=== PATIENT | female | born 1980 | race Asian ===

== ENCOUNTER 2020-08-04 14:28 | Day surgery (SDC) | payer BC ==
[~2020-08-04] VITALS: Ht 160 cm; Wt 61.0 kg
[2020-08-04] MEDS ORDERED: CHLORHEXIDINE 15 ML UDC ONE (14:53)
[2020-08-04] MEDS ORDERED: ACETAMINOPHEN 500 MG TABLET ONE (14:53)
[2020-08-04] MEDS ORDERED: LACTATED RINGERS 1,000 ML IV SCH (15:00)
[2020-08-04] MEDS ORDERED: CHLORHEXIDINE 15 ML UDC PO ONE (15:00)
[2020-08-04] MEDS ORDERED: ACETAMINOPHEN 500 MG TABLET PO ONE (15:00)
[2020-08-04] MEDS ORDERED: NONE PER PT (15:04)
[2020-08-04] MEDS ORDERED: METHYLERGONOVINE 0.2 MG/ML IM ONE (15:04)
[2020-08-04] MEDS ORDERED: OXYTOCIN 10 UNITS/ML, 1ML ONE (15:04)
[2020-08-04] MEDS ORDERED: MISOPROSTOL 200 MCG TABLET ONE (15:04)
[2020-08-04] MEDS ORDERED: BUPIVACAINE/PF-EPI 0.25% 1:200K ONE (15:04)
[2020-08-04 15:24] VITALS: BP 113/75
[2020-08-04 15:24] LABS: BASOPHILS % (AUTO) 0 % (0-1); EOSINOPHILS % (AUTO) 1 % (1-7); LYMPHOCYTES % (AUTO) 30 % (22-44); MEAN CORPUSCULAR HGB CONC 33.4 g/dL (32.4-35.8); MONOCYTES % (AUTO) 5 % (2-9); NEUTROPHILS % (AUTO) 64 % (42-75); PLATELET COUNT 262 x10^3/uL (130-400); RED BLOOD COUNT 4.08 x10^6/uL (3.82-5.3); RED CELL DISTRIBUTION WIDTH 12.9 % (9.6-15.2)
[2020-08-04 15:26] LABS: HCG UR SG 1.022 (1.003-1.030)
[2020-08-04] MEDS ORDERED: PLEASE ENTER ALLERGIES MC SCH (15:30)
[2020-08-04] MEDS ORDERED: ONDANSETRON 2MG/ML, 2ML IVPush PRN (15:30)
[2020-08-04] MEDS ORDERED: EPHEDRINE 50 MG/ML, 1ML IVPush PRN (15:30)
[2020-08-04] MEDS ORDERED: HYDROmorphone 1 MG/ML, 1ML INJ IVPush PRN (15:30)
[2020-08-04] MEDS ORDERED: LABETALOL 5MG/ML, 20ML IV PRN (15:30)
[2020-08-04] MEDS ORDERED: hydrALAzine 20 MG/ML, 1ML IV PRN (15:30)
[2020-08-04] MEDS ORDERED: OXYcodone 5 MG/5 ML ORAL.SOL UDC PO PRN (15:30)
[2020-08-04] MEDS ORDERED: PROMETHAZINE 25 MG/ML, 1ML IVPush PRN (15:30)
[2020-08-04] MEDS ORDERED: PLEASE ENTER HEIGHT AND WEIGHT MC SCH (15:30)
[2020-08-04] MEDS ORDERED: FENTANYL PF 100 MCG/2ML IV PRN (15:30)
[2020-08-04 15:45] LABS: MD NO
[2020-08-04] MEDS ORDERED: FENTANYL PF 100 MCG/2ML ONE (16:07)
[2020-08-04] MEDS ORDERED: MIDAZOLAM 1 MG/ML, 2ML ONE (16:07)
[2020-08-04] MEDS ORDERED: KETOROLAC 30 MG/1 ML ONE (16:49)
[2020-08-04] MEDS ORDERED: LIDOCAINE-MPF 2% ,5ML ONE (16:52)
[2020-08-04] MEDS ORDERED: DEXAMETHASONE 4 MG/ML, 1ML ONE (16:52)
[2020-08-04] MEDS ORDERED: PROPOFOL 10 MG/ML, 20ML ONE (16:52)
[2020-08-04] MEDS ORDERED: ONDANSETRON 2MG/ML, 2ML ONE (16:52)
[2020-08-04] MEDS ORDERED: BUPIVACAINE/PF-EPI 0.25% 1:200K INFIL ONE (17:00)
[2020-08-04] MEDS ORDERED: PHENYLEPHRINE 10 MG/ML ONE (17:03)
[2020-08-04] MEDS ORDERED: MISOPROSTOL 200 MCG TABLET PO ONE (17:10)
[2020-08-04] MEDS ORDERED: DOCU-131 PO (18:27)
[2020-08-04] MEDS ORDERED: OXYC1TAB14 PO (18:28)
[2020-08-04] MEDS ORDERED: IBUP-1222 PO (18:29)
== END 2020-08-04 18:50 | disposition home or self-care (01) ==
LOC: OR 14:28
PROVIDERS: ATTEND Obstetrics & Gynecology
DX: O02.1 Missed abortion (principal); N85.4 Malposition of uterus; O09.521 Supervision of elderly multigravida, first trimester; Z98.890 Other specified postprocedural states; Z20.822 Contact with and (suspected) exposure to COVID-19; Z72.89 Other problems related to lifestyle; Z3A.01 Less than 8 weeks gestation of pregnancy
CPT/HCPCS: 36415; 59820; 81025; 85025; 86850; 86900; 87635; 88305; J1100; J1885; J2250; J2370; J2405; J2590; J2704; J3010; J7120; J2210